=== PATIENT | male | born 1950 | race Caucasian/White ===

== ENCOUNTER → 2016-09-09 | Outpatient (CLI) | payer MEDICAID ==
[~2016-09-09] MED LIST: ASCO10004 PO; ASPI325T4 PO; ATEN25TA PO; COQ10 PO; DIPH50CA PO; DOXA2TAB9 PO; FINA5TAB PO; HYDR1TAB12 PO; LUTE40CA PO; MULT-658 PO; OMEG1CAP12 PO; RIVA20TA PO; SULF1TAB24 PO; VITA400C40 PO; WARF5TAB PO; ZOLP10TA5 PO
[2016-09-09 15:13] LABS: HEMOGLOBIN 15.8 g/dL (13.7-18.0)
[2016-09-09 15:26] LABS: ASPARTATE AMINO TRANSFERASE 14 U/L (15-37); BLOOD UREA NITROGEN 24 mg/dL (7-18)
== END | disposition home or self-care (01) ==
LOC: STAR 14:11
PROVIDERS: ATTEND Urology
DX: Z01.818 Encounter for other preprocedural examination (principal); N40.1 Benign prostatic hyperplasia with lower urinary tract symptoms; R79.1 Abnormal coagulation profile
CPT/HCPCS: 36415; 80053; 81003; 85025; 85610; 85730; 87086; 93005

== ENCOUNTER 2016-09-14 09:23 | Day surgery (SDC) | payer MEDICAID ==
[2016-09-09 14:36] VITALS: BP 115/74
[~2016-09-14] VITALS: Ht 180.3 cm; Wt 86.0 kg
[2016-09-14] MEDS ORDERED: LACTATED RINGERS 1,000 ML IV SCH (09:53)
[2016-09-14] MEDS ORDERED: IBUP1TAB11 PO (09:56)
[2016-09-14 09:57] VITALS: BP 115/74
[2016-09-14] MEDS ORDERED: LIDOCAINE 1%, 2ML SQ PRN (10:00)
[2016-09-14] MEDS ORDERED: LIDOCAINE 1%, 2ML ONE (10:06)
[2016-09-14] MEDS ORDERED: MIDAZOLAM 1 MG/ML, 2ML ONE (11:22)
[2016-09-14] MEDS ORDERED: FENTANYL PF 250 MCG/5ML ONE (11:22)
[2016-09-14] MEDS ORDERED: MIDAZOLAM 1 MG/ML, 2ML IV PRN (12:00)
[2016-09-14] MEDS ORDERED: METOCLOPRAMIDE 5 MG/ML, 2ML IV PRN (12:00)
[2016-09-14] MEDS ORDERED: ONDANSETRON 2MG/ML, 2ML IVPush PRN (12:00)
[2016-09-14] MEDS ORDERED: PROMETHAZINE 25 MG/ML, 1ML IV PRN (12:00)
[2016-09-14] MEDS ORDERED: MEPERIDINE/PF 25MG/0.5ML IVPush PRN (12:00)
[2016-09-14] MEDS ORDERED: HYDROmorphone 1 MG/ML, 1ML IV PRN (12:00)
[2016-09-14] MEDS ORDERED: hydrALAzine 20 MG/ML, 1ML IV PRN (12:00)
[2016-09-14] MEDS ORDERED: FENTANYL PF 100 MCG/2ML IV PRN (12:00)
[2016-09-14] MEDS ORDERED: OXYcodone 5 MG/5 ML ORAL.SOL UDC PO PRN (12:00)
[2016-09-14] MEDS ORDERED: ACETAMINOPHEN 325 MG TABLET PO PRN (12:00)
[2016-09-14] MEDS ORDERED: LABETALOL 5MG/ML, 20ML IV PRN (12:00)
[2016-09-14] MEDS ORDERED: HYDROcodone/APAP 5/325 TABLET ONE (14:15)
[2016-09-14] MEDS ORDERED: HYDROcodone/APAP 5/325 TABLET PO PRN (14:30)
[2016-09-14] MEDS ORDERED: CEFAZOLIN 1,000 MG ONE (15:36)
[2016-09-14] MEDS ORDERED: DEXAMETHASONE 4 MG/ML, 1ML ONE (15:36)
[2016-09-14] MEDS ORDERED: SUCCINYLCHOLINE 20 MG/ML, 10ML ONE (15:36)
[2016-09-14] MEDS ORDERED: PROPOFOL 10 MG/ML, 20ML ONE (15:36)
[2016-09-14] MEDS ORDERED: ROCURONIUM 10 MG/ML ONE (15:36)
[2016-09-14] MEDS ORDERED: ONDANSETRON 2MG/ML, 2ML ONE (15:36)
== END 2016-09-14 15:50 ==
LOC: OUT 09:23
PROVIDERS: ATTEND Urology
DX: N40.1 Benign prostatic hyperplasia with lower urinary tract symptoms (principal); I48.91 Unspecified atrial fibrillation; Z72.89 Other problems related to lifestyle
CPT/HCPCS: 52630; 88305; J0330; J0690; J1100; J2250; J2405; J2704; J3010; J3490; J7120

== ENCOUNTER 2016-10-10 19:42 | Emergency (ER) | payer MEDICAID ==
[~2016-10-10] VITALS: Ht 177.8 cm; Wt 82.4 kg
[~2016-10-10 19:42] MED LIST changes: +IBUP1TAB11 PO
[2016-10-10] MEDS ORDERED: SODIUM CHLORIDE 0.9% 1,000 ML IV ONE (19:52)
[2016-10-10] MEDS ORDERED: SODIUM CHLORIDE FLUSH 10ML SYR IVF ONE (20:00)
[2016-10-10 20:42] LABS: BLOOD UREA NITROGEN 22 mg/dL (7-18)
[2016-10-10] MEDS ORDERED: LORazepam 2 MG/ML, 1ML IVPush ONE ×2 (22:00→23:00)
[2016-10-10] MEDS ORDERED: LORazepam 2 MG/ML, 1ML ONE ×2 (22:07→22:53)
[2016-10-11 00:30] VITALS: BP 116/78
== END 2016-10-11 00:39 | disposition home or self-care (01) ==
LOC: ED 23:59
DX: G56.22 Lesion of ulnar nerve, left upper limb (principal); I10 Essential (primary) hypertension; I48.91 Unspecified atrial fibrillation
CPT/HCPCS: 36415; 70450; 70551; 80048; 82040; 85025; 96361; 96374; 96376; 99285; J2060; J7030

== ENCOUNTER 2016-10-29 00:44 | Emergency (ER) | payer MEDICAID ==
[~2016-10-29] VITALS: Ht 177.8 cm; Wt 80.9 kg
[2016-10-29 00:46] VITALS: BP 158/86
[2016-10-29] MEDS ORDERED: SODIUM CHLORIDE 0.9% 1,000 ML IV ONE (01:09)
[2016-10-29] MEDS ORDERED: SODIUM CHLORIDE FLUSH 10ML SYR IVF ONE (01:30)
[2016-10-29] MEDS ORDERED: LORazepam 2 MG/ML, 1ML ONE (01:30)
[2016-10-29] MEDS ORDERED: HYDROmorphone 1 MG/ML, 1ML ONE (01:30)
[2016-10-29] MEDS ORDERED: ONDANSETRON 2MG/ML, 2ML ONE (01:30)
[2016-10-29] MEDS ORDERED: ONDANSETRON 2MG/ML, 2ML IVPush ONE (01:30)
[2016-10-29] MEDS: HYDROmorphone 1 MG/ML, 1ML IVPush PRN ×2 (01:32→01:40)
[2016-10-29 01:34] LABS: ASPARTATE AMINO TRANSFERASE 15 U/L (15-37); BLOOD UREA NITROGEN 25 mg/dL (7-18)
[2016-10-29] MEDS ORDERED: LORazepam 2 MG/ML, 1ML IVPush ONE ×2 (02:00)
== END 2016-10-29 03:48 | disposition home or self-care (01) ==
LOC: ED 01:15
DX: R31.0 Gross hematuria (principal); N40.1 Benign prostatic hyperplasia with lower urinary tract symptoms; R33.8 Other retention of urine; I10 Essential (primary) hypertension; I48.91 Unspecified atrial fibrillation; Z88.6 Allergy status to analgesic agent
CPT/HCPCS: 36415; 51702; 80053; 81001; 85025; 87086; 96361; 96374; 96375; 99284; J1170; J2060; J2405; J7030

== ENCOUNTER 2016-10-30 22:06 | Inpatient (IN) | payer MEDICAID ==
[~2016-10-30] VITALS: Ht 185.4 cm; Wt 83.0 kg
[2016-10-30] MEDS ORDERED: HYDROmorphone 1 MG/ML, 1ML ONE ×2 (22:21→23:31)
[2016-10-30] MEDS ORDERED: ONDANSETRON 2MG/ML, 2ML ONE (22:21)
[2016-10-30] MEDS ORDERED: SODIUM CHLORIDE 0.9% 1,000 ML IV ONE (22:22)
[2016-10-30] MEDS ORDERED: LORazepam 2 MG/ML, 1ML ONE (22:22)
[2016-10-30] MEDS ORDERED: SODIUM CHLORIDE FLUSH 10ML SYR IVF ONE (22:30)
[2016-10-30] MEDS ORDERED: ONDANSETRON 2MG/ML, 2ML IVPush ONE (22:30)
[2016-10-30 22:49] LABS: BLOOD UREA NITROGEN 26 mg/dL (7-18)
[2016-10-30] MEDS: HYDROmorphone 1 MG/ML, 1ML IVPush PRN (23:02)
[2016-10-31] MEDS ORDERED: HYDROmorphone 1 MG/ML, 1ML ONE ×2 (01:44→10:06)
[2016-10-31] MEDS: HYDROmorphone 1 MG/ML, 1ML IVPush PRN (01:47)
[2016-10-31] MEDS ORDERED: SODIUM CHLORIDE 0.9% 1,000ML IVBOLUS ONE (02:00)
[2016-10-31] MEDS ORDERED: SODIUM CHLORIDE 0.9% 1,000 ML IV ONE (02:29)
[2016-10-31] MEDS ORDERED: ONDANSETRON 2MG/ML, 2ML IVPush PRN ×2 (02:30→22:00)
[2016-10-31] MEDS ORDERED: HYDROmorphone 1 MG/ML, 1ML IVPush PRN (02:30)
[2016-10-31] MEDS ORDERED: SODIUM CHLORIDE FLUSH 10ML SYR IVF PRN (02:30)
[2016-10-31] MEDS ORDERED: LABETALOL 5MG/ML, 20ML IVPush PRN (03:30)
[2016-10-31] MEDS ORDERED: TRAZODONE 50MG TABLET PO PRN (03:30)
[2016-10-31] MEDS ORDERED: ACETAMINOPHEN 325 MG TABLET PO PRN (03:30)
[2016-10-31] MEDS ORDERED: DOCUSATE 100 MG CAPSULE PO PRN (03:30)
[2016-10-31] MEDS ORDERED: morphine SULFATE 10 MG/ML, 1ML IVPush PRN (03:30)
[2016-10-31] MEDS ORDERED: POLYETHYLENE GLYCOL 17 GM PACKET PO PRN (03:30)
[2016-10-31] MEDS ORDERED: BISACODYL 10 MG SUPP PR PRN (03:30)
[2016-10-31 04:31] VITALS: BP 97/36
[2016-10-31] MEDS ORDERED: OPIUM/BELLADONNA SUPP.RECT 16.2-30 MG PR PRN (05:00)
[2016-10-31] MEDS ORDERED: OPIUM/BELLADONNA SUPP.RECT 16.2-30 MG ONE (05:02)
[2016-10-31 05:46] LABS: ASPARTATE AMINO TRANSFERASE 12 U/L (15-37); BLOOD UREA NITROGEN 27 mg/dL (7-18)
[2016-10-31] MEDS ORDERED: PROCHLORPERAZINE 25 MG SUPP PR PRN (09:00)
[2016-10-31] MEDS ORDERED: ONDANSETRON ODT 4 MG PO PRN (09:00)
[2016-10-31 09:15] VITALS: BP 101/63
[2016-10-31] MEDS: ONDANSETRON 2MG/ML, 2ML IVPush PRN ×3 (10:10→19:30)
[2016-10-31] MEDS: HYDROmorphone 2 MG/ML, 1ML IVPush PRN ×5 (10:10→13:57)
[2016-10-31] MEDS: NS + 20MEQ KCL 1,000 ML IV SCH ×2 (10:49→11:07)
[2016-10-31 13:28] VITALS: BP 98/50
[2016-10-31 13:31] LABS: BLOOD UREA NITROGEN 27 mg/dL (7-18)
[2016-10-31] MEDS: SODIUM CHLORIDE 0.45% 1,000 ML IV SCH ×2 (14:30→21:10)
[2016-10-31] MEDS ORDERED: PHENYLEPHRINE 10 MG/ML ONE (17:39)
[2016-10-31] MEDS ORDERED: PROPOFOL 10 MG/ML, 20ML ONE (17:39)
[2016-10-31] MEDS ORDERED: DEXAMETHASONE 4 MG/ML, 1ML ONE (17:39)
[2016-10-31] MEDS ORDERED: SUCCINYLCHOLINE 20 MG/ML, 10ML ONE (17:39)
[2016-10-31] MEDS ORDERED: FENTANYL PF 250 MCG/5ML ONE (17:39)
[2016-10-31] MEDS ORDERED: FENTANYL PF 100 MCG/2ML IV PRN (19:00)
[2016-10-31] MEDS ORDERED: MEPERIDINE/PF 25MG/0.5ML IVPush PRN (19:00)
[2016-10-31] MEDS ORDERED: HYDROmorphone 1 MG/ML, 1ML IV PRN (19:00)
[2016-10-31] MEDS ORDERED: OXYcodone 5 MG/5 ML ORAL.SOL UDC PO PRN (19:00)
[2016-10-31] MEDS ORDERED: METOPROLOL 1 MG/ML, 5ML IV PRN (19:00)
[2016-10-31] MEDS ORDERED: ALBUTEROL SULFATE 2.5 MG/3 ML NPPB PRN (19:00)
[2016-10-31] MEDS ORDERED: hydrALAzine 20 MG/ML, 1ML IV PRN (19:00)
[2016-10-31] MEDS ORDERED: MEPERIDINE/PF 25MG/0.5ML ONE (19:12)
[2016-10-31] MEDS ORDERED: OXYcodone 5 MG/5 ML ORAL.SOL UDC ONE (19:13)
[2016-10-31 19:33] VITALS: BP 130/77
[2016-10-31 20:34] VITALS: BP 128/67
[2016-11-01] VITALS (10 sets, daily range): BP systolic 90–111; BP diastolic 48–67
[2016-11-01] MEDS: ONDANSETRON 2MG/ML, 2ML IVPush PRN (00:30)
[2016-11-01] MEDS: SODIUM CHLORIDE 0.45% 1,000 ML IV SCH ×4 (03:50→23:50)
[2016-11-01] MEDS ORDERED: CIPROFLOXACIN/PMX 400MG/200ML 200 ML IV SCH (06:00)
[2016-11-01 07:01] LABS: BLOOD UREA NITROGEN 17 mg/dL (7-18)
[2016-11-01] MEDS ORDERED: SODIUM CHLORIDE 0.9% 500 ML IV SCH (12:14)
[2016-11-01] MEDS: FERROUS SULFATE 325 MG TABLET PO SCH ×2 (16:59→20:55)
[2016-11-01] MEDS: CIPROFLOXACIN 750 MG TABLET PO SCH (20:55)
[2016-11-02 04:10] VITALS: BP 116/74
[2016-11-02] MEDS: SODIUM CHLORIDE 0.45% 1,000 ML IV SCH (04:31)
[2016-11-02 06:36] LABS: BLOOD UREA NITROGEN 12 mg/dL (7-18)
[2016-11-02 07:20] VITALS: BP 116/76
[2016-11-02] MEDS: FERROUS SULFATE 325 MG TABLET PO SCH ×2 (08:51→16:15)
[2016-11-02] MEDS: CIPROFLOXACIN 750 MG TABLET PO SCH (08:51)
[2016-11-02] MEDS ORDERED: SODIUM CHLORIDE 0.45% 1,000 ML IV SCH (14:30)
[2016-11-02 16:13] VITALS: BP 109/65
[2016-11-02] MEDS ORDERED: FERR325T20 PO (17:06)
[2016-11-02] MEDS ORDERED: CIPR750T PO (17:13)
== END 2016-11-02 18:54 | disposition home or self-care (01) | DRG 713 ==
LOC: ED 22:37 → EDIP 10-31 02:29 → 4NOR 10-31 04:05
PROVIDERS: ADMIT Internal Medicine; ATTEND Internal Medicine
PROC: 0T5B8ZZ Destruction of Bladder, Via Natural or Artificial Opening Endoscopic (ICD-10-PCS; 2016-10-31)
PROC: 0T9B8ZZ Drainage of Bladder, Via Natural or Artificial Opening Endoscopic (ICD-10-PCS; 2016-10-31)
PROC: 30233N1 Transfusion of Nonautologous Red Blood Cells into Peripheral Vein, Percutaneous Approach (ICD-10-PCS; 2016-10-31)
PROC: 0VB08ZZ Excision of Prostate, Via Natural or Artificial Opening Endoscopic (ICD-10-PCS; principal; 2016-10-31 17:30)
DX: N40.0 Benign prostatic hyperplasia without lower urinary tract symptoms (principal); E44.0 Moderate protein-calorie malnutrition; E87.0 Hyperosmolality and hypernatremia; N17.9 Acute kidney failure, unspecified; I48.91 Unspecified atrial fibrillation; Z82.3 Family history of stroke; Z82.0 Family history of epilepsy and other diseases of the nervous system; Z80.0 Family history of malignant neoplasm of digestive organs; E87.6 Hypokalemia; D50.0 Iron deficiency anemia secondary to blood loss (chronic); R73.9 Hyperglycemia, unspecified; E87.8 Other disorders of electrolyte and fluid balance, not elsewhere classified; D72.829 Elevated white blood cell count, unspecified; I10 Essential (primary) hypertension; Z79.82 Long term (current) use of aspirin; Z68.24 Body mass index [BMI] 24.0-24.9, adult
CPT/HCPCS: 36415; 51702; 80048; 80053; 82040; 83036; 83690; 83735; 84100; 84439; 84443; 85014; 85018; 85025; 85610; 85730; 86850; 86900; 86923; 88305; 96361; 96374; 96375; 96376; J0744; J1100; J1170; J2175; J2405; J2704; J3010; J3480; J0330; J2270; J2370; J7030; P9016